=== PATIENT | male | born 1990 | race African-American/Black ===

== ENCOUNTER 2017-01-31 19:40 | Emergency (ER) | payer OTHER ==
[~2017-01-31] VITALS: Ht 193 cm; Wt 104.1 kg
[2017-01-31 19:44] VITALS: BP 151/71
[2017-01-31] MEDS ORDERED: CYCLOBENZAPRINE 10 MG TAB PO ONE (21:15)
[2017-01-31] MEDS ORDERED: IBUPROFEN 600 MG TAB PO ONE (21:15)
[2017-01-31] MEDS ORDERED: IBUP-1022 PO (21:17)
[2017-01-31] MEDS ORDERED: CYCL10TA PO (21:17)
== END 2017-01-31 21:32 | disposition home or self-care (01) ==
LOC: M ED 19:40
DX: M62.838 Other muscle spasm (principal); S16.1XXA Strain of muscle, fascia and tendon at neck level, initial encounter; W50.0XXA Accidental hit or strike by another person, initial encounter; Y92.89 Other specified places as the place of occurrence of the external cause; Y93.75 Activity, martial arts; Y99.1 Military activity